=== PATIENT | female | born 1980 | race Caucasian/White ===

== ENCOUNTER 2019-03-07 10:54 | Emergency (ER) | payer OTHER, SELFPAY ==
[2019-03-07 10:55] VITALS: BP 156/96; PULSE 88; RESP 16; TEMP 36.6; O2SAT 99; BMI 33.2
--- NOTE | 2019-03-07 11:04 | ED.RN ---
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
--- NOTE | 2019-03-07 11:26 | ED.DCSUM_ITS ---
- ER Visit Summary Date of Service: 03/07/19 Chief Complaint: Burn History of Present Illness: The patient is a 38 F presents to the emergency department with burn. Patient was at work. She works at [employer]. She states that the ice coffee machine filter was ill fitting. She states that it came out and fell to the ground. She states it splashed up with hot coffee grounds and ended up on her left foot which she was wearing a shoe, and on her left arm. She denies other injury. Her tetanus is up-to-date. She immediately remove the shoe. She did suffer some superficial moralez. Physical Examination: Exam is relatively unremarkable. Patient does have partial-thickness moralez of the left first through third toe that are noncircumferential. There is no skin sloughing or blistering. There is no moralez of the foot. Pulses are normal. She has very superficial burning of the left arm that is less than 1% total body surface area. Test Results: [] Emergency Department Course and Treatment: Patient's tetanus is already up-to-date. Her foot burn was cleaned and dressed. She will be given a short course of analgesics and follow-up with [facility] care. She will be discharged home. Treatment Plan: [] Disposition: Discharge Impression: 1 partial-thickness burn left first through third toes 2. Superficial burn left forearm This note was generated with [employer] dictation software. It may contain incorrect words, spelling, and punctuation that were not noted in review of the chart prior to signing ED Disposition - Plan for ED Patient: Instructions: ED Burn Thermal D 2nd Dressing Prescriptions: Hydrocodone Bitart/Apap 5-325 [[place] 5MG-325MG] 1 tab PO Q6H PRN PRN 3 Days #10 tab PRN Reason: Pain Referrals: [facility] [GROUP OF PHYSICIANS] -
[2019-03-07 12:21] VITALS: BP 140/82; PULSE 80; RESP 16; O2SAT 97
== END 2019-03-07 12:22 | disposition home or self-care (01) ==
LOC: ED 11:20
PROVIDERS: Emergency Provider Emergency Medicine
DX: T22.012A Burn of unspecified degree of left forearm, initial encounter (principal); T25.032A Burn of unspecified degree of left toe(s) (nail), initial encounter; X10.0XXA Contact with hot drinks, initial encounter; Y93.9 Activity, unspecified; Y92.89 Other specified places as the place of occurrence of the external cause; Y99.0 Civilian activity done for income or pay; Z72.0 Tobacco use
CPT/HCPCS: 99283

== ENCOUNTER 2024-10-18 07:36 | Emergency (ER) | payer SELFPAY ==
[2024-10-18 07:37] VITALS: BP 174/104; PULSE 109; RESP 16; TEMP 36.3; O2SAT 100; BMI 32.3
--- NOTE | 2024-10-18 07:56 | EX.ED.VIS.UR ---
HPI HPI - URI History of Present Illness Chief Complaint: Nosebleed Informant: patient Narrative Narrative: Spontaneous nosebleed that started yesterday and has been intermittent. Mostly from the right side but some coming out of the left as well. Swallowing a little bit of blood. Has had some clots. No passing out or systemic symptoms of anemia. No recent URI. States she has baseboard heat in her house. Yesterday went to a different hospital but was not seen because the wait was too long. Her blood pressure was 120 at that time yesterday according to the patient. She is compliant with her lisinopril for blood pressure. ROS [email or web address] ED Constitutional Constitutional ED: Denies chills or fever(s) ENT ENT ED: Reports as per HPI and epistaxis Cardiovascular Cardiovascular: Denies chest pain, lightheadedness or syncope Respiratory/Chest Respiratory/Chest: Denies dyspnea on exertion Gastrointestinal Gastrointestinal: Denies abdominal pain PFSH PFS Medical History Depression Home Medications ?Medication ?Instructions ?Recorded ?Last Taken ?Type escitalopram oxalate 20 mg tablet 20 mg PO DAILY 03/07/19 Unknown History lisinopril 10 mg tablet 10 mg PO DAILY 03/07/19 Unknown History Allergy/AdvReac Type Severity Reaction Status Date / Time No Known Allergies Allergy Verified 10/18/24 07:38 Social History Smoking Status: Current every day smoker tobacco type: cigarettes EXAM Physical Exam Const Vital Signs: 10/18/24 07:37 Temperature 97.4 F L Temperature Source Temporal Pulse Rate 109 H Respiratory Rate 16 Blood Pressure 174/104 H Blood Pressure Mean 127 Pulse Ox 100 Oxygen Delivery Method Room Air Positive well nourished and well developed General Appearance ED: well developed and NAD HEENT HEENT Narrative: Blood in the right naris more than the left, but very little present, able to visualize septum bilaterally, that appear benign no obvious source of bleeding. No active bleeding right now, patient came with vaginal tampon in each naris. Both have blood on the ends and some small clots. No posterior oropharyngeal blood/bleeding. No septal hematoma or perforation. Eyes PERRL and EOMs intact bilaterally General Eye ED: Negative for scleral icterus Neck supple and no meningeal signs Resp normal respiratory effort Effort and Inspection: able to speak in complete sentences Neuro oriented x3, CN's II-XII intact bilaterally, no sensory deficits noted and gait normal Motor Exam: strength 5/5 throughout Psych Mood & Affect: anxious Skin Lesions: no lesions Rashes: no rashes MDM MDM MDM Narrative Medical decision making narrative: Epistaxis care: I removed the patient's vaginal tampons from both nostrils. There is no active bleeding. On inspection there is no obvious source of the bleeding on either septum or elsewhere. She swallowed a clot and then had no recurrent bleeding. She was given 1 cc of aerosolized Song mix up each nostril inhaled back to her posterior oropharynx and watched for 30 minutes. No recurrent bleeding. Nares clear. Posterior pharynx clear. I offered a packing, we discussed that and she declines. I gave her medication advice with oxymetazoline in the nose to deal with recurrent bleeding. I had nurses recheck her blood pressure, it is 146/86, therefore I suspect this is less likely to be blood pressure-mediated. We discussed reasons to return, patient is comfortable with that plan. She can follow-up with ENT if she has recurrent bleeding. Discharge Plan Triage Chief Complaint: Nosebleed ED Provider: Tom Umanzor Dx/Rx/DC Orders Clinical Impression: Acute anterior epistaxis, Episode of hypertension Instructions: ED Epistaxis (Adult), ED Hypertension, Established Prescriptions: No Action lisinopril 10 MG tablet 10 mg PO DAILY escitalopram oxalate 20 MG tablet 20 mg PO DAILY Primary Care Provider: Care Physician,No Primary Referrals: Tanner Godfrey MD [[facility] Staff - Active Staff] - (ENT follow up for recurrent bleeding) [facility] Doctor,Out of [Non-Staff] - Activity Restrictions/Additional Instructions: Get any [id number] nasal decongestant spray containing oxymetazoline or phenylephrine. For moderate-severe nosebleed: 1 - gather supplies: nasal decongestant spray (above), cotton ball, box of tissues, garbage can, old towel that you can wrap around your chest/neck (to catch blood) 2 - soak a cotton ball in the nasal spray 3 - blow your nose, get all blood and clots out, keep chin down to prevent blood from going back into throat and forming clots 4 - after blowing the last time, quickly spray 2 sprays of the nasal spray into the affected side and sniff it back, immediately followed by twisting the soaked cotton ball into the front of your nose and then hold pressure with your fingers. 5 - if bleeding controlled, leave cotton ball in place for at least 20 min before checking to see if the bleeding is controlled by removing the cotton ball. If not able to control bleeding, always welcome to return to the ER for help. Print Language: [place] Disposition Disposition: Home, Self Care
[2024-10-18 09:29] VITALS: BP 140/80; PULSE 87; RESP 16; O2SAT 99
== END 2024-10-18 09:31 | disposition home or self-care (01) ==
PROVIDERS: Emergency Provider Emergency Medicine; Visit Provider Emergency Medicine
DX: R04.0 Epistaxis (principal); I10 Essential (primary) hypertension; F17.210 Nicotine dependence, cigarettes, uncomplicated
CPT/HCPCS: 99282